=== PATIENT | female | born 1945 | race Caucasian/White ===

== ENCOUNTER → 2024-04-03 | Outpatient (CLI) | payer MEDICARE, SELFPAY ==
[2024-04-03 08:54] LABS: Glucose Estimated Average 169 mg/dL (80-131); Hemoglobin A1C 7.5 % Hgb (4.8-6.0)
[2024-04-03 08:58] LABS: Anion Gap 6 (7-16); BUN/Creatinine Ratio 13 Ratio (12-20); Blood Urea Nitrogen 12 mg/dL (9-23); Calcium 10.4 mg/dL (8.3-10.6); Carbon Dioxide 35.4 mMol/L (20.0-31.0); Chloride 101 mMol/L (98-107); Creatinine (Component) 0.9 mg/dL (0.6-1.3); Glucose 111 mg/dL (74-106); Osmolality,Calculated 283 (275-295); Potassium 4.2 mMol/L (3.4-5.1); Sodium 142 mMol/L (136-145); eGFR > 60 See Note
== END | disposition home or self-care (01) ==
LOC: COPL 06:58
PROVIDERS: PCP Family Medicine; Referring Provider Family Medicine; Visit Provider Family Medicine
DX: E11.65 Type 2 diabetes mellitus with hyperglycemia (principal)
CPT/HCPCS: 36415; 80048; 83036

== ENCOUNTER → 2024-07-19 | Outpatient (CLI) | payer MEDICARE, SELFPAY ==
[2024-07-19 08:59] LABS: Glucose Estimated Average 183 mg/dL (80-131)
[2024-07-19 09:00] LABS: Anion Gap 7 (7-16); BUN/Creatinine Ratio 14 Ratio (12-20); Blood Urea Nitrogen 13 mg/dL (9-23); Calcium 9.3 mg/dL (8.3-10.6); Carbon Dioxide 32.7 mMol/L (20.0-31.0); Chloride 104 mMol/L (98-107); Creatinine (Component) 0.9 mg/dL (0.6-1.3); Glucose 108 mg/dL (74-106); Osmolality,Calculated 287 (275-295); Potassium 4.3 mMol/L (3.4-5.1); Sodium 144 mMol/L (136-145); eGFR > 60 See Note
== END | disposition home or self-care (01) ==
LOC: COPL 06:47
PROVIDERS: PCP Family Medicine; Referring Provider Family Medicine; Visit Provider Family Medicine
DX: E11.65 Type 2 diabetes mellitus with hyperglycemia (principal)
CPT/HCPCS: 36415; 80048; 83036

== ENCOUNTER → 2024-10-18 | Outpatient (CLI) | payer MEDICARE, SELFPAY ==
[2024-10-18 08:43] LABS: Glucose Estimated Average 177 mg/dL (80-131); Hemoglobin A1C 7.8 % Hgb (4.8-6.0)
== END | disposition home or self-care (01) ==
LOC: COPL 06:46
PROVIDERS: PCP Family Medicine; Referring Provider Family Medicine; Visit Provider Family Medicine
DX: E11.65 Type 2 diabetes mellitus with hyperglycemia (principal)
CPT/HCPCS: 36415; 83036

== ENCOUNTER → 2025-02-04 | Outpatient (CLI) | payer MEDICARE, SELFPAY ==
[2025-02-04 08:38] LABS: Basophils # (Auto) 0.1 Thou/mm3 (0.0-0.2); Basophils % (Auto) 1 % (0-2.5); Eosinophils # (Auto) 0.5 Thou/mm3 (0.0-0.5); Eosinophils % (Auto) 4 % (0-10); Hematocrit 44.9 % (36.0-46.0); Hemoglobin 13.8 g/dL (12.0-16.0); Immature Granulocytes Auto 0.05 Thou/mm3 (0.00-0.00); Lymphocytes # (Auto) 4.0 Thou/mm3 (1.0-4.8); Lymphocytes % (Auto) 32 % (10-50); Mean Corpuscular HGB Conc 30.7 g/dl (31.0-37.0); Mean Corpuscular Hemoglobin 29.1 pg (25.0-35.0); Mean Corpuscular Volume 95 fL (80-100); Monocytes # (Auto) 1.0 Thou/mm3 (0.0-0.8); Monocytes % (Auto) 8 % (0-12); Neutrophils # (Auto) 6.8 Thou/mm3 (1.8-7.7); Neutrophils % (Auto) 55 % (37-80); Nucleated Red Blood Cell # 0.00 Thou/mm3 (0.00-0.00); Nucleated Red Blood Cell % 0 /100 WBC (0); Platelet Count 257 Thou/mm3 (140-440); RDW Standard Deviation 46.4 fL (36.4-46.3); Red Blood Count 4.75 Miln/mm3 (4.00-5.20); White Blood Count 12.3 Thou/mm3 (3.6-11.0)
[2025-02-04 08:47] LABS: Glucose Estimated Average 209 mg/dL (80-131); Hemoglobin A1C 8.9 % Hgb (4.8-6.0)
[2025-02-04 08:54] LABS: Alanine Aminotransferase 13 U/L (10-49); Albumin, Serum 4.4 gm/dL (3.4-4.8); Albumin/Globulin Ratio 1.7 (1.2-2.2); Alkaline Phosphatase 77 U/L (46-116); Anion Gap 8 (7-16); Aspartate Amino Transferase 32 U/L (0-34); BUN/Creatinine Ratio 16 Ratio (12-20); Bilirubin,Total 0.3 mg/dL (0.3-1.2); Blood Urea Nitrogen 16 mg/dL (9-23); Calcium 9.7 mg/dL (8.3-10.6); Calcium (Corrected) 9.7 mg/dL (8.5-10.1); Carbon Dioxide 35.0 mMol/L (20.0-31.0); Cardiac Risk Estimate 5.5 RATIO (3.7-5.6); Chloride 101 mMol/L (98-107); Cholesterol 238 mg/dL (132-200); Creatinine (Component) 1.0 mg/dL (0.6-1.3); Globulin 2.6 gm/dL (2.3-3.5); Glucose 125 mg/dL (74-106); HDL Cholesterol 43 mg/dL (40-60); LDL Cholesterol,Calculated 163 mg/dL (0-130); Osmolality,Calculated 289 (275-295); Potassium 4.7 mMol/L (3.4-5.1); Sodium 144 mMol/L (136-145); Thyroid Stimulating Hormone 3.43 uIU/mL (0.55-4.78); Total Protein 7.0 gm/dL (5.7-8.2); Triglycerides 158 mg/dL (30-150); eGFR 57 See Note
[2025-02-04 13:57] LABS: Creatinine MALB Rnd Ur 111 mg/dL (30-125); Microalbumin Creat Ratio 76 mg/gCrea (<30); Microalbumin, Random Urine 84 mg/L (0-300)
== END | disposition home or self-care (01) ==
LOC: COPL 06:38
PROVIDERS: PCP Family Medicine; Referring Provider Family Medicine; Visit Provider Family Medicine
DX: E11.65 Type 2 diabetes mellitus with hyperglycemia (principal)
CPT/HCPCS: 36415; 80053; 80061; 82043; 82570; 83036; 84443; 85025